=== PATIENT | male | born 1965 | race Caucasian/White ===

== ENCOUNTER 2017-03-11 00:01 | Outpatient (RCR) | payer MEDICARE, MEDICAID, SELFPAY ==
[~2017-03-11 00:01] MED LIST: BUSPAR; DEPAKOTE; ZYPREXA
[2017-04-01 11:16] LABS: HEPATITIS Bs ANTIGEN SCREEN P Negative (Negative); HEPATITIS C AB SCREEN <0.1 s/co ratio (0.0-0.9)
== END 2017-04-09 | disposition home or self-care (01) ==
LOC: IOPBV 00:01
PROVIDERS: ATTEND Psychiatry & Neurology Psychiatry
DX: F25.8 Other schizoaffective disorders (principal); Z86.69 Personal history of other diseases of the nervous system and sense organs
CPT/HCPCS: 80074; 86708; 90853

== ENCOUNTER → 2018-08-31 | Outpatient (CLI) | payer MEDICARE, OTHER ==
[2018-09-04 16:27] LABS: ANION GAP 7 mmol/L (8-16); BILIRUBIN,TOTAL 0.2 mg/dL (0.1-1.0); CALCIUM, TOTAL 9.1 mg/dL (8.8-10.5); CARBON DIOXIDE 29 mmol/L (22-29); CHLORIDE 104 mmol/L (98-107); CREATININE 0.73 mg/dL (0.60-1.30); GLOMERULAR FILTR. RATE CALC > 60 mL/min (>60); GLUCOSE,RANDOM 69 mg/dL (70-110); HEMOGLOBIN A1C 5.4 % (4.5-6.2); POTASSIUM 5.4 mmol/L (3.5-5.1); SODIUM SERUM 140 mmol/L (136-145); UREA NITROGEN, BLOOD 12 mg/dL (7-18)
[2018-09-04 16:28] LABS: ALANINE AMINOTRANSFERASE 23 U/L (12-78); ALBUMIN 3.5 g/dL (3.4-5.0); ALKALINE PHOSPHATASE 75 U/L (46-116); ASPARTATE AMINOTRANSFERASE 22 U/L (15-37); CHOLESTEROL 157 mg/dL (131-200); HDL CHOLESTEROL 52 mg/dL (40-60); LDL CHOL (CALC.) 80 mg/dL (0-130); TOTAL PROTEIN, SERUM 6.5 g/dL (6.4-8.2); TRIGLYCERIDES 124 mg/dL (15-150)
== END | disposition home or self-care (01) ==
LOC: LABMN 10:35
PROVIDERS: ATTEND Psychiatry & Neurology Psychiatry
DX: F25.0 Schizoaffective disorder, bipolar type (principal); I10 Essential (primary) hypertension; Z79.899 Other long term (current) drug therapy
CPT/HCPCS: 83036

== ENCOUNTER → 2019-06-15 | Outpatient (CLI) | payer MEDICARE, OTHER ==
[2019-06-18 11:17] LABS: HEMOGLOBIN A1C 5.7 % (4.5-6.2)
== END | disposition home or self-care (01) ==
LOC: LABPV 14:30
PROVIDERS: ATTEND Psychiatry & Neurology Psychiatry
DX: F25.9 Schizoaffective disorder, unspecified (principal); I10 Essential (primary) hypertension; Z79.899 Other long term (current) drug therapy
CPT/HCPCS: 82947; 83036

== ENCOUNTER 2019-08-10 09:55 | Inpatient (IN) | payer MEDICARE, MEDICAID ==
[~2019-08-10] VITALS: Ht 172.7 cm; Wt 56.7 kg
[2019-08-10] MEDS ORDERED: LOPERAMIDE HCL 2 MG CAPSULE PO PRN (13:00)
[2019-08-10] MEDS ORDERED: MAGNESIUM HYDROXIDE SUSPENSION 30 ML UDCUP PO PRN (13:00)
[2019-08-10] MEDS ORDERED: PROMETHAZINE HCL 25 MG TABLET PO PRN (13:00)
[2019-08-10] MEDS ORDERED: MAG HYDROX/AL HYDROX/SIMETH ES 30 ML SUSPENSION UDCUP PO PRN (13:00)
[2019-08-10] MEDS ORDERED: LORazepam 2 MG TABLET PO PRN (13:00)
[2019-08-10] MEDS ORDERED: ZOLPIDEM TARTRATE 10 MG TABLET PO PRN (13:00)
[2019-08-10] MEDS ORDERED: TUBERCULIN, PURIFIED PROTEIN DERIVATIVE 5 TU/0.1 ML SYRINGE ID ONE (13:00)
[2019-08-10] MEDS ORDERED: HydrOXYzine PAMOATE 50 MG CAPSULE PO PRN (13:00)
[2019-08-10] MEDS ORDERED: OLANZapine 5 MG RAPDIS TABLET PO PRN (13:00)
[2019-08-10] MEDS ORDERED: GuaiFENesin/D-METHORPHAN [SUGAR-FREE] 200-20MG/10 ML SYRUP UDCUP PO PRN (13:00)
[2019-08-10] MEDS ORDERED: ACETAMINOPHEN 325 MG TABLET PO PRN (13:00)
[2019-08-10 13:19] VITALS: BP 151/103
[2019-08-10 16:44] VITALS: BP 147/100
[2019-08-10] MEDS: THIAMINE HCL 100 MG TABLET PO SCH (17:23)
[2019-08-10] MEDS: CloNIDine HCL 0.1 MG TABLET PO SCH (17:23)
[2019-08-10] MEDS: GABAPENTIN 300 MG CAPSULE PO SCH (17:24)
[2019-08-10] MEDS: DIVALPROEX SODIUM 500 MG ER TABLET PO SCH (21:03)
[2019-08-10] MEDS: OLANZapine 5 MG RAPDIS TABLET PO SCH (21:03)
[2019-08-11 05:37] VITALS: BP 127/89
[2019-08-11 08:18] LABS: BASOPHILS % (AUTO) 0.9 % (0.0-2.0); EOSINOPHILS % (AUTO) 2.9 % (1.0-6.0); HEMATOCRIT 41.9 % (41-53); HEMOGLOBIN 13.9 g/dL (13.5-17.5); LYMPHOCYTES # (AUTO) 1.9 K/uL (1.0-4.8); LYMPHOCYTES % (AUTO) 21.9 % (22.0-44.0); MEAN CORPUSCULAR HEMOGLOBIN 32.7 pg (26.0-34.0); MEAN CORPUSCULAR HGB CONC 33.2 G/dL (31.0-37.0); MEAN CORPUSCULAR VOLUME 99 fL (80-100); MONOCYTES # (AUTO) 0.9 K/uL (0.1-1.0); MONOCYTES % (AUTO) 10.8 % (2.0-9.0); NEUTROPHILS # (AUTO) 5.4 K/uL (1.8-7.7); NEUTROPHILS % (AUTO) 63.5 % (40.0-70.0); PLATELET COUNT (AUTO) 403 K/uL (150-450); RED BLOOD CELL COUNT(AUTO) 4.25 MIL/uL (4.50-5.90); RED CELL DISTRIBUTION WIDTH 14.1 % (11.5-14.5)
[2019-08-11 08:41] LABS: HEMOGLOBIN A1C 5.9 % (4.5-6.2)
[2019-08-11 08:59] VITALS: BP 129/85
[2019-08-11] MEDS: CloNIDine HCL 0.1 MG TABLET PO SCH ×2 (09:10→16:40)
[2019-08-11] MEDS: THIAMINE HCL 100 MG TABLET PO SCH ×2 (09:10→16:40)
[2019-08-11] MEDS: FOLIC ACID 1 MG TABLET PO SCH (09:10)
[2019-08-11] MEDS: GABAPENTIN 300 MG CAPSULE PO SCH ×3 (09:10→16:40)
[2019-08-11] MEDS: MULTIVITAMINS WITH MINERALS, THERAPEUTIC TABLET PO SCH (09:10)
[2019-08-11] MEDS: NALTREXONE HCL 50 MG TABLET PO SCH (09:10)
[2019-08-11 09:17] LABS: ALANINE AMINOTRANSFERASE 20 U/L (12-78); ALKALINE PHOSPHATASE 54 U/L (46-116); ANION GAP 6 mmol/L (8-16); ASPARTATE AMINOTRANSFERASE 11 U/L (15-37); BILIRUBIN,TOTAL 0.4 mg/dL (0.1-1.0); CALCIUM, TOTAL 8.5 mg/dL (8.8-10.5); CARBON DIOXIDE 27 mmol/L (22-29); CHLORIDE 104 mmol/L (98-107); CHOL/HDL RATIO 2.2 (4.2-7.3); CHOLESTEROL 143 mg/dL (131-200); CREATININE 0.87 mg/dL (0.60-1.30); FREE T4 (FREE THYROXINE) 1.19 ng/dL (0.76-1.46); GLOMERULAR FILTR. RATE CALC > 60 mL/min (>60); GLUCOSE,RANDOM 85 mg/dL (70-110); HDL CHOLESTEROL 66 mg/dL (40-60); LDL CHOL (CALC.) 69 mg/dL (0-130); POTASSIUM 4.2 mmol/L (3.5-5.1); SODIUM SERUM 137 mmol/L (136-145); THYROID STIMULATING HORMONE 2.29 uIU/mL (0.36-3.74); TOTAL PROTEIN, SERUM 6.3 g/dL (6.4-8.2); TRIGLYCERIDES 39 mg/dL (15-150); UREA NITROGEN, BLOOD 11 mg/dL (7-18)
[2019-08-11 16:20] VITALS: BP 117/79
[2019-08-11] MEDS: DIVALPROEX SODIUM 500 MG ER TABLET PO SCH (20:37)
[2019-08-11] MEDS: OLANZapine 5 MG RAPDIS TABLET PO SCH (20:37)
[2019-08-12 01:50] VITALS: BP 114/79
[2019-08-12 08:17] VITALS: BP 116/84
[2019-08-12] MEDS: NALTREXONE HCL 50 MG TABLET PO SCH (09:09)
[2019-08-12] MEDS: THIAMINE HCL 100 MG TABLET PO SCH ×2 (09:09→16:33)
[2019-08-12] MEDS: CloNIDine HCL 0.1 MG TABLET PO SCH ×2 (09:10→16:32)
[2019-08-12] MEDS: FOLIC ACID 1 MG TABLET PO SCH (09:10)
[2019-08-12] MEDS: MULTIVITAMINS WITH MINERALS, THERAPEUTIC TABLET PO SCH (09:10)
[2019-08-12] MEDS: GABAPENTIN 300 MG CAPSULE PO SCH ×3 (09:10→16:33)
[2019-08-12 16:12] VITALS: BP 123/79
[2019-08-12] MEDS: OLANZapine 5 MG RAPDIS TABLET PO SCH (20:33)
[2019-08-12] MEDS: DIVALPROEX SODIUM 500 MG ER TABLET PO SCH (20:33)
[2019-08-13 06:03] VITALS: BP 134/80
[2019-08-13] MEDS: NALTREXONE HCL 50 MG TABLET PO SCH (08:42)
[2019-08-13] MEDS: MULTIVITAMINS WITH MINERALS, THERAPEUTIC TABLET PO SCH (08:43)
[2019-08-13] MEDS: FOLIC ACID 1 MG TABLET PO SCH (08:43)
[2019-08-13] MEDS: CloNIDine HCL 0.1 MG TABLET PO SCH ×2 (08:43→16:41)
[2019-08-13] MEDS: THIAMINE HCL 100 MG TABLET PO SCH ×2 (08:43→16:41)
[2019-08-13] MEDS: GABAPENTIN 300 MG CAPSULE PO SCH ×3 (08:43→16:41)
[2019-08-13 08:44] VITALS: BP 115/64
[2019-08-13 16:09] VITALS: BP 116/75
[2019-08-13] MEDS: DIVALPROEX SODIUM 500 MG ER TABLET PO SCH (20:31)
[2019-08-13] MEDS: OLANZapine 10 MG RAPDIS TABLET PO SCH (20:31)
[2019-08-14 01:24] VITALS: BP 109/71
[2019-08-14 08:20] VITALS: BP 140/80
[2019-08-14] MEDS: NALTREXONE HCL 50 MG TABLET PO SCH (08:35)
[2019-08-14] MEDS: MULTIVITAMINS WITH MINERALS, THERAPEUTIC TABLET PO SCH (08:35)
[2019-08-14] MEDS: CloNIDine HCL 0.1 MG TABLET PO SCH ×2 (08:36→16:32)
[2019-08-14] MEDS: THIAMINE HCL 100 MG TABLET PO SCH ×2 (08:36→16:32)
[2019-08-14] MEDS: GABAPENTIN 300 MG CAPSULE PO SCH ×2 (08:36→12:06)
[2019-08-14] MEDS: FOLIC ACID 1 MG TABLET PO SCH (08:36)
[2019-08-14 16:08] VITALS: BP 123/80
[2019-08-14] MEDS: GABAPENTIN 400 MG CAPSULE PO SCH (16:32)
[2019-08-14] MEDS: DIVALPROEX SODIUM 500 MG ER TABLET PO SCH (20:49)
[2019-08-14] MEDS: OLANZapine 10 MG RAPDIS TABLET PO SCH (20:50)
[2019-08-15 06:24] VITALS: BP 127/80
[2019-08-15 08:15] VITALS: BP 138/80
[2019-08-15] MEDS: THIAMINE HCL 100 MG TABLET PO SCH ×2 (08:19→16:51)
[2019-08-15] MEDS: MULTIVITAMINS WITH MINERALS, THERAPEUTIC TABLET PO SCH (08:19)
[2019-08-15] MEDS: NALTREXONE HCL 50 MG TABLET PO SCH (08:19)
[2019-08-15] MEDS: GABAPENTIN 400 MG CAPSULE PO SCH ×3 (08:19→16:51)
[2019-08-15] MEDS: CloNIDine HCL 0.1 MG TABLET PO SCH ×2 (08:19→16:52)
[2019-08-15] MEDS: FOLIC ACID 1 MG TABLET PO SCH (08:19)
[2019-08-15 16:08] VITALS: BP 129/88
[2019-08-15] MEDS: OLANZapine 10 MG RAPDIS TABLET PO SCH (20:42)
[2019-08-15] MEDS: DIVALPROEX SODIUM 500 MG ER TABLET PO SCH (20:42)
[2019-08-16 00:12] VITALS: BP 110/76
[2019-08-16 08:23] VITALS: BP 135/73
[2019-08-16] MEDS: CloNIDine HCL 0.1 MG TABLET PO SCH ×2 (08:38→16:41)
[2019-08-16] MEDS: MULTIVITAMINS WITH MINERALS, THERAPEUTIC TABLET PO SCH (08:38)
[2019-08-16] MEDS: NALTREXONE HCL 50 MG TABLET PO SCH (08:38)
[2019-08-16] MEDS: GABAPENTIN 400 MG CAPSULE PO SCH ×3 (08:38→16:41)
[2019-08-16] MEDS: THIAMINE HCL 100 MG TABLET PO SCH ×2 (08:38→16:41)
[2019-08-16] MEDS: FOLIC ACID 1 MG TABLET PO SCH (08:38)
[2019-08-16] MEDS ORDERED: OLAN10TA22 PO (13:00)
[2019-08-16] MEDS ORDERED: DIVA500T52 PO (13:00)
[2019-08-16] MEDS ORDERED: GABA-533 PO (13:00)
[2019-08-16] MEDS ORDERED: NALT50TA PO (13:00)
[2019-08-16 16:08] VITALS: BP 138/82
[2019-08-16] MEDS: DIVALPROEX SODIUM 500 MG ER TABLET PO SCH (20:36)
[2019-08-16] MEDS: OLANZapine 10 MG RAPDIS TABLET PO SCH (20:37)
[2019-08-17 00:25] VITALS: BP 114/68
[2019-08-17 08:31] VITALS: BP 132/89
[2019-08-17] MEDS: GABAPENTIN 400 MG CAPSULE PO SCH ×2 (08:41→12:10)
[2019-08-17] MEDS: MULTIVITAMINS WITH MINERALS, THERAPEUTIC TABLET PO SCH (08:41)
[2019-08-17] MEDS: CloNIDine HCL 0.1 MG TABLET PO SCH (08:42)
[2019-08-17] MEDS: FOLIC ACID 1 MG TABLET PO SCH (08:42)
[2019-08-17] MEDS: THIAMINE HCL 100 MG TABLET PO SCH (08:42)
[2019-08-17] MEDS: NALTREXONE HCL 50 MG TABLET PO SCH (08:42)
[2019-08-17] MEDS ORDERED: CLON0.1T83 PO (09:26)
== END 2019-08-17 13:25 | disposition home or self-care (01) | DRG 885 ==
LOC: B2X 11:55
PROVIDERS: ADMIT Psychiatry & Neurology Psychiatry; ATTEND Psychiatry & Neurology Psychiatry
DX: F25.0 Schizoaffective disorder, bipolar type (principal); B15.9 Hepatitis A without hepatic coma; F17.200 Nicotine dependence, unspecified, uncomplicated; G62.9 Polyneuropathy, unspecified; I10 Essential (primary) hypertension; L72.3 Sebaceous cyst; R00.1 Bradycardia, unspecified; Z91.19 Patient's noncompliance with other medical treatment and regimen
CPT/HCPCS: 83036; 84439; 84443; 86592; 93005

== ENCOUNTER → 2020-04-25 | Outpatient (CLI) | payer MEDICARE, OTHER ==
[~2020-04-25] MED LIST changes: -BUSPAR; +CLON0.1T83 PO; -DEPAKOTE; +DIVA-80 PO; +GABA-533 PO; +NALT50TA PO; +OLAN10TA22 PO; -ZYPREXA
== END | disposition home or self-care (01) ==
LOC: LABPV 12:32
PROVIDERS: ATTEND Psychiatry & Neurology Psychiatry
DX: F25.9 Schizoaffective disorder, unspecified (principal)

== ENCOUNTER → 2020-08-29 | Outpatient (CLI) | payer MEDICARE, OTHER ==
[~2020-08-29] MED LIST changes: +CLON0.1T2 PO; -CLON0.1T83 PO
[2020-08-29 20:25] LABS: HEMOGLOBIN A1C 5.5 % (3.8-5.6)
[2020-08-29 20:43] LABS: CHOL/HDL RATIO 3.1 (4.2-7.3)
== END | disposition home or self-care (01) ==
LOC: LABPV 12:39
PROVIDERS: ATTEND Psychiatry & Neurology Psychiatry
DX: F25.0 Schizoaffective disorder, bipolar type (principal); I10 Essential (primary) hypertension; Z79.899 Other long term (current) drug therapy
CPT/HCPCS: 82947; 83036

== ENCOUNTER 2021-01-23 10:46 | Emergency (ER) | payer MEDICARE, OTHER ==
[~2021-01-23] VITALS: Ht 165.1 cm; Wt 72.7 kg
[2021-01-23 11:31] VITALS: BP 150/97
[2021-01-23] MEDS ORDERED: BACITRACIN 0.9 GM PACKET OINTMENT TP ONE (12:15)
[2021-01-23] MEDS ORDERED: PERTUSS(ACELL),DIPH,TET VAC/PF 0.5 ML SYRINGE IM. ONE (12:15)
== END 2021-01-23 13:21 | disposition home or self-care (01) ==
LOC: EMS 10:46
DX: S01.81XA Laceration without foreign body of other part of head, initial encounter (principal); W22.8XXA Striking against or struck by other objects, initial encounter; Y93.89 Activity, other specified; Y92.89 Other specified places as the place of occurrence of the external cause; Y99.8 Other external cause status
CPT/HCPCS: 90471; 90715; 99283

== ENCOUNTER → 2021-05-20 | Outpatient (CLI) | payer MEDICARE, OTHER | END | disposition home or self-care (01) | LOC: LABMN 13:02 | PROVIDERS: ATTEND Psychiatry & Neurology Psychiatry | DX: F25.1 Schizoaffective disorder, depressive type (principal) | CPT/HCPCS: 80164 ==

== ENCOUNTER → 2021-08-14 | Outpatient (CLI) | payer MEDICARE, OTHER ==
[2021-08-14 16:45] LABS: CHOL/HDL RATIO 2.9 (4.2-7.3)
[2021-08-14 16:50] LABS: HEMOGLOBIN A1C 5.7 % (3.8-5.6)
[2021-08-28 16:31] LABS: AMPHET/METH SCREEN,URINE NEGATIVE (NEGATIVE); BARBITURATE SCREEN, URINE NEGATIVE (NEGATIVE); BENZODIAZEPINES SCREEN,URINE NEGATIVE (NEGATIVE); CANNABINOID SCREEN,URINE NEGATIVE (NEGATIVE); COCAINE SCREEN,URINE NEGATIVE (NEGATIVE); METHADONE SCREEN, URINE NEGATIVE (NEGATIVE); OPIATE SCREEN,URINE NEGATIVE (NEGATIVE); PHENCYCLIDINE SCREEN,URINE NEGATIVE (NEGATIVE)
== END | disposition home or self-care (01) ==
LOC: LABMN 12:34
PROVIDERS: ATTEND Psychiatry & Neurology Psychiatry
DX: F25.0 Schizoaffective disorder, bipolar type (principal); Z79.899 Other long term (current) drug therapy
CPT/HCPCS: 80061; 82947; 83036

== ENCOUNTER → 2021-12-11 | Outpatient (CLI) | payer MEDICARE, OTHER | END | disposition home or self-care (01) | LOC: LABMN 13:03 | PROVIDERS: ATTEND Psychiatry & Neurology Psychiatry | DX: F25.0 Schizoaffective disorder, bipolar type (principal) | CPT/HCPCS: 80164 ==

== ENCOUNTER → 2022-06-18 | Outpatient (CLI) | payer MEDICARE, OTHER | END | disposition home or self-care (01) | LOC: LABMN 13:27 | PROVIDERS: ATTEND Psychiatry & Neurology Psychiatry | DX: F25.0 Schizoaffective disorder, bipolar type (principal) | CPT/HCPCS: 80164 ==

== ENCOUNTER → 2022-07-30 | Outpatient (CLI) | payer MEDICARE, OTHER | END | disposition home or self-care (01) | LOC: LABMN 15:47 | PROVIDERS: ATTEND Psychiatry & Neurology Psychiatry | DX: F25.0 Schizoaffective disorder, bipolar type (principal) | CPT/HCPCS: 80164 ==

== ENCOUNTER → 2022-10-15 | Outpatient (CLI) | payer MEDICARE, OTHER ==
[~2022-10-15] MED LIST changes: -DIVA-80 PO; +DIVA500T53 PO
[2022-10-15 17:42] LABS: HEMOGLOBIN A1C 5.7 % (3.8-5.6)
[2022-10-15 18:06] LABS: CHOL/HDL RATIO 2.4 (4.2-7.3)
== END | disposition home or self-care (01) ==
LOC: LABMN 14:16
PROVIDERS: ATTEND Psychiatry & Neurology Psychiatry
DX: F25.1 Schizoaffective disorder, depressive type (principal); Z79.899 Other long term (current) drug therapy
CPT/HCPCS: 80061; 82947; 83036

== ENCOUNTER → 2022-12-24 | Outpatient (CLI) | payer MEDICARE, OTHER | END | disposition home or self-care (01) | LOC: LABMN 11:00 | PROVIDERS: ATTEND Psychiatry & Neurology Psychiatry | DX: F25.0 Schizoaffective disorder, bipolar type (principal) | CPT/HCPCS: 80164 ==

== ENCOUNTER → 2023-07-15 | Outpatient (CLI) | payer MEDICARE, OTHER ==
[~2023-07-15] MED LIST changes: -GABA-533 PO; +GABA-534 PO
[2023-07-15 16:07] LABS: HEMOGLOBIN A1C 5.4 % (3.8-5.6)
[2023-07-15 17:08] LABS: GLUCOSE,RANDOM 86 mg/dL (70-110)
[2023-07-15 17:11] LABS: VALPROIC ACID < 3 mcg/mL (50-100)
== END | disposition home or self-care (01) ==
LOC: LABMN 12:46
PROVIDERS: ATTEND Psychiatry & Neurology Psychiatry
DX: F25.1 Schizoaffective disorder, depressive type (principal); Z13.1 Encounter for screening for diabetes mellitus; Z79.899 Other long term (current) drug therapy
CPT/HCPCS: 80164; 82947; 83036

== ENCOUNTER → 2023-08-31 | Outpatient (CLI) | payer MEDICARE, OTHER | END | disposition home or self-care (01) | LOC: LABMN 11:35 | PROVIDERS: ATTEND Psychiatry & Neurology Psychiatry | DX: F25.9 Schizoaffective disorder, unspecified (principal) | CPT/HCPCS: 80164 ==

== ENCOUNTER → 2024-05-18 | Outpatient (CLI) | payer MEDICARE, OTHER ==
[~2024-05-18] MED LIST changes: +DIVA-153 PO; -DIVA500T53 PO; -NALT50TA PO; +NALT50TA6 PO
== END | disposition home or self-care (01) ==
LOC: LABMN 11:45
PROVIDERS: ATTEND Psychiatry & Neurology Psychiatry
DX: F25.0 Schizoaffective disorder, bipolar type (principal)
CPT/HCPCS: 80164